=== PATIENT | female | born 1955 | race Caucasian/White ===

== ENCOUNTER 2016-05-22 13:11 | Emergency (ER) | payer OTHER ==
[~2016-05-22] VITALS: Ht 175.2 cm; Wt 128.8 kg
[~2016-05-22 13:11] MED LIST: ANAPROX DS550 MG PO; ASTHMANEX; AVPAK AZITHROM250 M1 PO; BACTRIM DS 8001 TA1 PO; CIPRODEX 0.3%-7.5 ML OT; CIPROFLOXACIN500 MG PO; CLARITIN10 MG PO; DARVOCET N 1001 TAB PO; FLEXERIL5 MG PO; GLUCOPHAGE500 MG PO; HCTZ/TRIAMTEREN1 TA3 PO; HYDROCODONE BIT1 T11 PO; HYDROCODONE BIT1 T20 PO; IBU-8800 MG PO; K-DUR20 MEQ PO; KENALOG 0.025%15 GM T; MASON NATURAL2000 IU PO; MAXIDE; MEDROL DOSEPAK4 MG PO; MOBIC15 MG PO; MOTRIN 800 MG E4 TAB PO; MOTRIN800 MG PO; MUCINEX DM 60 M1 TER PO; PHENERGAN W/ DE30 ML PO; PRAVACHOL PO; PRAVACHOL40 MG PO; PREDNICOT10 MG PO; PREDNICOT20 MG PO; PRILOSEC20 M1 PO; PROAIR HFA0.09 MG/AC INH; PYRIDIUM200 MG PO; ROBITUSSIN DM 105 ML PO; TESSALON PERLE200 MG PO; ULTRAM50 MG PO; VICODIN 500 MG-1 TAB PO; VITAMIN B121000 MC2 SL; VOLTAREN50 M1 PO; ZITHROMAX Z PA250 MG PO; ZITHROMAX250 MG PO; ZOFRAN ODT4 MG SL; ZOLPIDEM TART10 MG PO
[2016-05-22 15:09] LABS: ALBUMIN 3.6 gm/dl (3.1-4.5); ALKALINE PHOSPHATASE 73 U/L (45-117); BILIRUBIN, TOTAL 0.6 mg/dl (0.2-1.0); BUN 8 mg/dl (7-24); CARBON DIOXIDE 32 mmol/L (21-32); CHLORIDE 97 mmol/L (98-107); EST GLOM FILT AFRICAN AMERICAN > 60 ml/min; GLUCOSE 88 mg/dL (65-99); POTASSIUM 4.2 mmol/L (3.5-5.1); SGOT/AST 22 IU/L (3-35); SGPT/ALT 24 U/L (12-78); SODIUM 135 mmol/L (136-145)
[2016-05-22] MEDS ORDERED: ZITHROMAX500 MG PO (15:42)
[2016-05-22] MEDS ORDERED: MEDROL DOSEPAK4 MG PO (15:43)
[2016-05-22] MEDS ORDERED: PROAIR HFA8.5 GM INH (15:43)
[2016-05-22 16:24] LABS: BASO # 0.1 10*3/uL (0.0-0.1); BASO % 0.4 % (0.0-1.0); EOS # 0.1 10*3/uL (0.0-0.4); EOS % 0.7 % (1.0-4.0); HEMATOCRIT 42.4 % (37.0-47.0); HEMOGLOBIN 13.9 g/dl (12.0-16.0); IG # 0.1 10*3/uL (0.0-0.1); LYMPH # 4.2 10*3/uL (1.3-4.4); LYMPH % 32.4 % (27.0-41.0); MEAN CORPUSCULAR HGB 30.2 pg (27.0-31.0); MEAN CORPUSCULAR HGB CONC 32.8 g/dl (33.0-37.0); MEAN PLATELET VOLUME 10.1 fl (9.6-12.3); MONO % 7.8 % (3.0-9.0); NEUT # 7.5 10*3/uL (2.3-7.9); PLATELET COUNT AUTOMATED 198 10*3/uL (130-400); RED BLOOD COUNT 4.61 10*6/uL (4.10-5.10); RED CELL DISTRI WIDTH 12.3 % (0-14.5); WHITE BLOOD COUNT 12.9 10*3/uL (4.8-10.8)
[2016-05-22 16:34] VITALS: BP 123/53
== END 2016-05-22 16:28 | disposition home or self-care (01) ==
LOC: ED 13:11
PROVIDERS: Nurse Practitioner Family
DX: J40 Bronchitis, not specified as acute or chronic (principal); F17.200 Nicotine dependence, unspecified, uncomplicated; Z88.0 Allergy status to penicillin; Z88.1 Allergy status to other antibiotic agents; Z88.6 Allergy status to analgesic agent; Z79.899 Other long term (current) drug therapy

== ENCOUNTER 2016-08-23 16:31 | Emergency (ER) | payer OTHER ==
[~2016-08-23] VITALS: Ht 172.7 cm; Wt 119.3 kg
--- NOTE | ~2016-08-23 | EKG ---
[place], [place] ELECTROCARDIOGRAM REPORT NAME: NALDO QUILES UNIT #: [id number] ROOM: DOCTOR: TONI HILL,RICHY BIRTHDATE: [birth year] DOS: 08/23/2016 TIME: 17:29 p.m. FINDINGS: 1. Normal sinus rhythm with rate 69. 2. Leftward axis. 3. Poor precordial R wave progression. 4. Anterior T wave inversions. 5. Nonspecific intraventricular conduction defect. 6. Abnormal electrocardiogram. RICHY MUÑOZ MD CM:EKGRPT:ELECTROCARDIOGRAM REPORT [id number] RICHY MUÑOZ MD
[~2016-08-23 16:31] MED LIST changes: +PROAIR HFA8.5 GM INH; +ZITHROMAX500 MG PO
[2016-08-23 16:39] VITALS: BP 153/74
[2016-08-23 17:33] LABS: HEMATOCRIT 40.8 % (37.0-47.0); HEMOGLOBIN 13.7 g/dl (12.0-16.0); MEAN CELL VOLUME 91.7 fl (81.0-99.0); MEAN CORPUSCULAR HGB 30.8 pg (27.0-31.0); MEAN CORPUSCULAR HGB CONC 33.6 g/dl (33.0-37.0); MEAN PLATELET VOLUME 9.5 fl (9.6-12.3); PLATELET COUNT AUTOMATED 198 10*3/uL (130-400); RED BLOOD COUNT 4.45 10*6/uL (4.10-5.10); RED CELL DISTRI WIDTH 12.3 % (0-14.5); WHITE BLOOD COUNT 10.7 10*3/uL (4.8-10.8)
[2016-08-23 17:50] LABS: ALBUMIN 3.6 gm/dl (3.1-4.5); ALKALINE PHOSPHATASE 72 U/L (45-117); BILIRUBIN, TOTAL 0.4 mg/dl (0.2-1.0); BUN 12 mg/dl (7-24); CARBON DIOXIDE 27 mmol/L (21-32); CHLORIDE 100 mmol/L (98-107); CPK 75 U/L (26-192); EST GLOM FILT AFRICAN AMERICAN > 60 ml/min; GLUCOSE 114 mg/dL (65-99); LDH 170 U/L (84-246); MAGNESIUM 1.8 mg/dL (1.5-2.1); POTASSIUM 3.9 mmol/L (3.5-5.1); SGOT/AST 14 IU/L (3-35); SGPT/ALT 21 U/L (12-78); SODIUM 137 mmol/L (136-145); TOTAL PROTEIN 7.2 gm/dL (6.4-8.2)
[2016-08-23 17:52] LABS: TROPONIN I < 0.015 ng/ml (<0.045)
[2016-08-23 17:55] LABS: BASOPHIL # 0.1 10*3/uL (0-0.1); BASOPHILS 1 % (0-1); LYMPHOCYTE # 5.7 10*3/uL (1.3-4.4); MONOCYTE # 0.3 10*3/uL (0.1-1.0); NEUTROPHIL # 4.6 10*3/uL (2.3-7.9); NEUTROPHILS 43 % (47-73); PLATELET SUFFICIENCY NORMAL (NORMAL); TOTAL CELLS COUNTED 100 #CELLS
[2016-08-23] MEDS ORDERED: TYLENOL WITH CO1 TA1 PO (19:07)
== END 2016-08-23 19:11 | disposition home or self-care (01) ==
LOC: ED 16:31
PROVIDERS: Physician Assistant
DX: M79.671 Pain in right foot (principal); R60.9 Edema, unspecified; F17.200 Nicotine dependence, unspecified, uncomplicated; Z90.49 Acquired absence of other specified parts of digestive tract; Z88.0 Allergy status to penicillin; Z88.1 Allergy status to other antibiotic agents; Z88.6 Allergy status to analgesic agent

== ENCOUNTER 2016-09-25 23:34 | Emergency (ER) | payer OTHER ==
[~2016-09-25] VITALS: Ht 172.7 cm; Wt 122.5 kg
[~2016-09-25 23:34] MED LIST changes: +TYLENOL WITH CO1 TA1 PO
[2016-09-25 23:41] VITALS: BP 131/89
[2016-09-26 00:25] LABS: HEMATOCRIT 41.1 % (37.0-47.0); HEMOGLOBIN 14.1 g/dl (12.0-16.0); MEAN CELL VOLUME 90.7 fl (81.0-99.0); MEAN CORPUSCULAR HGB 31.1 pg (27.0-31.0); MEAN CORPUSCULAR HGB CONC 34.3 g/dl (33.0-37.0); PLATELET COUNT AUTOMATED 224 10*3/uL (130-400); RED BLOOD COUNT 4.53 10*6/uL (4.10-5.10); RED CELL DISTRI WIDTH 12.2 % (0-14.5); WHITE BLOOD COUNT 12.8 10*3/uL (4.8-10.8)
[2016-09-26 00:41] LABS: INTERNATIONAL NORM RATIO 0.9 (2.0-3.5)
[2016-09-26 00:43] LABS: ATYPICAL LYMPHS 4 % (0-0); EOSINOPHIL # 0.1 10*3/uL (0-0.4); EOSINOPHILS 1 % (1-4); NEUTROPHIL # 4.6 10*3/uL (2.3-7.9); NEUTROPHILS 36 % (47-73); TOTAL CELLS COUNTED 100 #CELLS
[2016-09-26 00:44] LABS: PLATELET SUFFICIENCY NORMAL (NORMAL)
[2016-09-26 00:48] LABS: ALBUMIN 3.7 gm/dl (3.1-4.5); ALKALINE PHOSPHATASE 75 U/L (45-117); BILIRUBIN, TOTAL 0.3 mg/dl (0.2-1.0); BUN 11 mg/dl (7-24); CARBON DIOXIDE 28 mmol/L (21-32); CHLORIDE 100 mmol/L (98-107); CPK 107 U/L (26-192); EST GLOM FILT AFRICAN AMERICAN > 60 ml/min; GLUCOSE 103 mg/dL (65-99); LDH 165 U/L (84-246); MAGNESIUM 1.9 mg/dL (1.5-2.1); POTASSIUM 3.3 mmol/L (3.5-5.1); SGOT/AST 19 IU/L (3-35); SGPT/ALT 27 U/L (12-78); SODIUM 136 mmol/L (136-145); TOTAL PROTEIN 7.2 gm/dL (6.4-8.2)
[2016-09-26 00:49] LABS: CKMB 0.9 ng/ml (0.5-3.6)
[2016-09-26 00:52] LABS: TROPONIN I < 0.015 ng/ml (<0.045)
[2016-09-26] MEDS ORDERED: MECLIZINE HCL25 M2 PO (02:23)
== END 2016-09-26 02:22 | disposition home or self-care (01) ==
LOC: ED 23:34
PROVIDERS: Physician Assistant
DX: R42 Dizziness and giddiness (principal); F17.200 Nicotine dependence, unspecified, uncomplicated; Z90.49 Acquired absence of other specified parts of digestive tract; Z88.0 Allergy status to penicillin; Z88.1 Allergy status to other antibiotic agents; Z88.6 Allergy status to analgesic agent; Z79.899 Other long term (current) drug therapy

== ENCOUNTER → 2017-04-27 | Outpatient (CLI) | payer OTHER ==
[~2017-04-27] MED LIST changes: +MECLIZINE HCL25 M2 PO
[2017-04-27 10:08] LABS: ALBUMIN 3.5 gm/dl (3.1-4.5); BILIRUBIN, DIRECT 0.1 mg/dL (0.0-0.2); CREATININE 1.14 mg/dL (0.55-1.02); PHOSPHOROUS 2.9 mg/dL (2.5-4.9); POTASSIUM 4.1 mmol/L (3.5-5.1)
== END | disposition home or self-care (01) ==
LOC: LAB 09:11
PROVIDERS: Internal Medicine
DX: E11.9 Type 2 diabetes mellitus without complications (principal); E78.2 Mixed hyperlipidemia

== ENCOUNTER → 2018-02-20 | Day surgery (SDC) | payer OTHER ==
[~2018-02-20] VITALS: Ht 172.7 cm; Wt 126.1 kg
[~2018-02-20] MED LIST changes: +ALDACTONE25 MG PO; +FLUTICASONE SPR 50M NAS; +TRAMADOL HCL50 MG PO; -VITAMIN B121000 MC2 SL; +VITAMIN B1250 MCG PO
--- NOTE | ~2018-02-20 | O ---
[place], [place] OPERATIVE NOTE NAME: NALDO QUILES [facility] #: [id number] UNIT #: [id number] ROOM: DOCTOR: KENNA VIEIRA MD BIRTHDATE: [birth year] DOS: 02/20/2018 PREOPERATIVE DIAGNOSIS: Cataract, left eye. POSTOPERATIVE DIAGNOSIS: Cataract, left eye. OPERATION: Extracapsular cataract extraction by phacoemulsification with posterior chamber intraocular lens implantation, left eye. ANESTHESIA: Monitored standby. OPERATIVE FINDINGS AND PROCEDURE: 2% Xylocaine topical anesthetic gel was applied to the eye in the preop area. The patient was taken to the operating room and prepped and draped in the standard fashion for sterile intraocular surgery. A time out procedure was performed verifying correct patient, correct site and corrects lens with Ninfa Vieira M.D. The operating microscope was swung into position and the lid speculum was inserted. Using a Jessica paracentesis blade, a paracentesis was made through clear cornea. Viscoelastic was used to fill the anterior chamber. Using a metal keratome a 2.4 mm self-sealing clear corneal cataract incision was made temporally at the limbus. Using a pre-bent 25 gauge cystotome needle, a standard continuous curvilinear capsulorrhexis was performed. The anterior capsule was removed with forceps. The lens nucleus was hydrodissected and phacoemulsified in the posterior chamber. Cortical material was removed with the irrigation aspiration hand piece and the posterior capsule was then polished with a curet under irrigation. The posterior chamber and capsular bag were filled with viscoelastic. A posterior chamber intraocular lens manufactured by: [employer], Model #[id number] and 21.5 diopters in strength were then inserted into the posterior chamber and within the capsular bag using the lens cartridge and injector system. Viscoelastic was removed using the irrigation aspiration handpiece. The anterior chamber was filled with balanced salt solution through the paracentesis. Both the paracentesis site and cataract incisions were hydrated with BSS and verified to be water-tight and self-sealing. The incision checked to be water-tight using a Weck-Tomasa sponge. The integrity of the cataract wound and ocular tension were checked. Lid speculum and drapes were removed. The patient was transferred from the operating room to the recovery room in satisfactory condition. [place], [place] OPERATIVE NOTE NAME: NALDO QUILES UNIT #: [id number] ROOM: DOCTOR: KENNA VIEIRA MD BIRTHDATE: [birth year] KENNA VIEIRA MD CM:OPRECORD:OPERATIVE NOTE [id number] KENNA VIEIRA MD 02/20/18 1042 interface
[2018-02-20 08:49] VITALS: BP 125/42
[2018-02-20 10:05] VITALS: BP 111/50
[2018-02-20 10:20] VITALS: BP 110/54
[2018-02-20 10:30] VITALS: BP 128/50
== END | disposition home or self-care (01) ==
LOC: SDC 02-15 12:30
DX: E11.36 Type 2 diabetes mellitus with diabetic cataract (principal); H25.812 Combined forms of age-related cataract, left eye; I10 Essential (primary) hypertension; E78.00 Pure hypercholesterolemia, unspecified; K21.9 Gastro-esophageal reflux disease without esophagitis; J44.9 Chronic obstructive pulmonary disease, unspecified; G47.30 Sleep apnea, unspecified; E66.01 Morbid (severe) obesity due to excess calories; M19.90 Unspecified osteoarthritis, unspecified site; G89.29 Other chronic pain; F41.8 Other specified anxiety disorders; F17.210 Nicotine dependence, cigarettes, uncomplicated; Z98.891 History of uterine scar from previous surgery; Z98.890 Other specified postprocedural states; Z90.49 Acquired absence of other specified parts of digestive tract; Z88.1 Allergy status to other antibiotic agents; Z88.5 Allergy status to narcotic agent; Z88.0 Allergy status to penicillin; Z91.013 Allergy to seafood; Z68.41 Body mass index [BMI] 40.0-44.9, adult; Z91.041 Radiographic dye allergy status; Z87.11 Personal history of peptic ulcer disease; Z79.899 Other long term (current) drug therapy

== ENCOUNTER → 2018-12-02 | Outpatient (CLI) | payer OTHER ==
[~2018-12-02] MED LIST changes: +FLONASE ALLERG9.9 ML NAS; +Ipratropium Brom3 ML INH; +PREDNISONE10 MG PO
== END | disposition home or self-care (01) ==
LOC: RAD 13:52
DX: M51.37 Other intervertebral disc degeneration, lumbosacral region (principal); F51.01 Primary insomnia

== ENCOUNTER 2019-02-16 13:09 | Inpatient (IN) | payer OTHER ==
[~2019-02-16] VITALS: Ht 172.7 cm; Wt 119.1 kg
[2019-02-16 13:10] VITALS: BP 148/61
[2019-02-16 13:24] LABS: BILIRUBIN NEGATIVE (NEGATIVE); BLOOD TRACE-INTACT (NEGATIVE); CLARITY SL CLOUDY (CLEAR); COLOR YELLOW (YELLOW); GLUCOSE NEGATIVE (NEGATIVE); KETONE NEGATIVE (NEGATIVE); LEUKO ESTERASE 2+ (NEGATIVE); NITRITE NEGATIVE (NEGATIVE); PH 6.5 (5.0-9.0)
[2019-02-16 13:40] LABS: WBC TNTC wbc/hpf (0-5)
[2019-02-16 14:02] LABS: HEMATOCRIT 42.4 % (37.0-47.0); HEMOGLOBIN 13.4 g/dl (12.0-16.0); MEAN CELL VOLUME 96.4 fl (81.0-99.0); MEAN CORPUSCULAR HGB 30.5 pg (27.0-31.0); MEAN CORPUSCULAR HGB CONC 31.6 g/dl (33.0-37.0); MEAN PLATELET VOLUME 10.5 fl (9.6-12.3); PLATELET COUNT AUTOMATED 146 10*3/uL (130-400); RED CELL DISTRI WIDTH 12.1 % (0-14.5); WHITE BLOOD COUNT 10.4 10*3/uL (4.8-10.8)
[2019-02-16 14:13] LABS: ACT PARTIAL THROMBO TIME 25.6 SECONDS (20.0-32.1); INTERNATIONAL NORM RATIO 0.9 (2.0-3.5)
[2019-02-16 14:22] LABS: ATYPICAL LYMPHS 7 % (0-0); TOTAL CELLS COUNTED 100 #CELLS
[2019-02-16 14:23] LABS: PLATELET SUFFICIENCY NORMAL (NORMAL)
[2019-02-16 14:33] LABS: ALBUMIN 3.2 gm/dl (3.1-4.5); ALKALINE PHOSPHATASE 65 U/L (45-117); BUN 10 mg/dl (7-24); CHLORIDE 106 mmol/L (98-107); CREATININE 1.06 mg/dL (0.55-1.02); POTASSIUM 3.9 mmol/L (3.5-5.1); SGOT/AST 16 IU/L (3-35); SGPT/ALT 18 U/L (12-78); SODIUM 140 mmol/L (136-145); TOTAL PROTEIN 6.4 gm/dL (6.4-8.2)
[2019-02-16 14:34] LABS: TROPONIN I < 0.015 ng/ml (<0.045)
[2019-02-16] MEDS ORDERED: LASIX40 MG PO (17:06)
[2019-02-16] MEDS ORDERED: TRAZODONE50 MG PO (17:07)
[2019-02-16 17:40] VITALS: BP 152/68
--- NOTE | 2019-02-16 17:40 | NUR ---
A 63, admitted to , under the services of KEVEN Porter DO with a diagnosis of UTI,ABDOMINAL PAIN. Chief complaint is LOW BACK ABDOMINAL PAIN. Patient arrived via stretcher from ER. Monitor applied. Initial assessment completed. Vital signs taken and recorded. KEVEN PORTER DO notified of admission to the unit. Orders received. See assessment for past medical history, medications and allergies. Patient and/or family oriented to unit. [facility] visitation policy reviewed. Clothing/patient valuable form completed. МАРИНА CHACON
--- NOTE | 2019-02-16 17:51 | NUR ---
PATIENT CO NOT GETTING TO EAT. DIETARY ORDER PLACED FOR PATIENT. EXPLAINED THAT WE HAVE TO WAIT FOR CT RESULTS TO COME BACK BEFORE WE CAN LET HER EAT. PATIENT CO THAT WE ARE PUTTING HER IN THE "HAUNTED PART" OF THE HOSPITAL. PATIENT TAKEN TO 4TH FLOOR BY THIS NURSE. NO CHANGE IN STATUS.
--- NOTE | 2019-02-16 18:27 | NUR ---
DR. LABOY NOTIFIED OF PT'S REQUEST FOR SOMETHING STRONGER FOR PAIN RELIEF OTHER THAN TYLENOL. TO ORDER SOMETHING.
[2019-02-16 20:00] VITALS: BP 142/52
[2019-02-16] MEDS ORDERED: CYMBALTA20 M1 PO (20:03)
[2019-02-16] MEDS ORDERED: PRAVACHOL40 MG PO (20:04)
--- NOTE | 2019-02-16 22:18 | NUR ---
PT MEDICATED W/RESTORIL TO HELP PROMOTE SLEEP. LIGHTS TURNED OFF. PT DOES NOT WISH TV OFF OR DOOR SHUT AT THIS TIME.
[2019-02-17] VITALS: BP 126/54
--- NOTE | 2019-02-17 03:10 | NUR ---
PATIENT RESTING IN BED WITH NO NEEDS MADE. BED IN LOWEST POSITION, CALL LIGHT IN REACH
--- NOTE | 2019-02-17 05:30 | NUR ---
PATIENT'S BED ELEVATED UPON ENTERING ROOM. PATIENT STATES "LEAVE MY BED UP". PATIENT EDUCATED ON IMPORTANCE OF BED BEING IN LOW POSITION FOR SAFETY. BED WAS LOWERED TO LOWEST SETTING. PATIENT STATES "I WILL JUST RAISE IT WHEN YOU LEAVE THE ROOM". BED IN LOW LOCKED POSITION BEFORE THIS RN LEFT THE ROOM. CALL LIGHT IN REACH
[2019-02-17 06:12] LABS: HEMATOCRIT 40.3 % (37.0-47.0); HEMOGLOBIN 12.8 g/dl (12.0-16.0); MEAN CELL VOLUME 97.3 fl (81.0-99.0); MEAN CORPUSCULAR HGB 30.9 pg (27.0-31.0); MEAN CORPUSCULAR HGB CONC 31.8 g/dl (33.0-37.0); MEAN PLATELET VOLUME 10.8 fl (9.6-12.3); PLATELET COUNT AUTOMATED 126 10*3/uL (130-400); RED BLOOD COUNT 4.14 10*6/uL (4.10-5.10); WHITE BLOOD COUNT 10.2 10*3/uL (4.8-10.8)
[2019-02-17 06:44] LABS: ALBUMIN 2.9 gm/dl (3.1-4.5); BUN 13 mg/dl (7-24); CHLORIDE 107 mmol/L (98-107); CREATININE 1.03 mg/dL (0.55-1.02); PHOSPHOROUS 3.2 mg/dL (2.5-4.9); POTASSIUM 3.8 mmol/L (3.5-5.1); SGOT/AST 14 IU/L (3-35); SGPT/ALT 18 U/L (12-78); SODIUM 140 mmol/L (136-145); TOTAL PROTEIN 5.8 gm/dL (6.4-8.2)
[2019-02-17 06:51] LABS: ALKALINE PHOSPHATASE 59 U/L (45-117); FREE T4 1.04 ng/dl (0.76-1.46)
[2019-02-17 07:04] LABS: PLATELET SUFFICIENCY LOW (NORMAL); TOTAL CELLS COUNTED 100 #CELLS
[2019-02-17 08:36] VITALS: BP 120/60
--- NOTE | 2019-02-17 09:00 | NUR ---
Heel Seat Fitter in to talk to patient. Patient states lives at home with boyfriend and son. There are few steps in the home. Physician: anabell dubose [facility] Home health services: none Patient's level of ADLs: INDEPENDENT Patient has working utilities: all working DME: wheelchair and walker Follow-up physician's appointment after d/c: will be made by hospitalist nurse director upon discharge Does patient want to access PORTAL?: no Discharge plan discussed with patient, she states she lives at home with boyfriend and son, she states she is independent in adls and ambualtion, she states she has a wheelchair and walker that she uses occasionally, patient she states she will return home when medically stable. discussed with her VNA and she declines any home needs at this time, case management will follow. AYAZ MALAVE
--- NOTE | 2019-02-17 10:00 | NUR ---
PT STATES TYLENOL INEFFECTIVE
--- NOTE | 2019-02-17 11:19 | NUR ---
pt complaining of abdominal pain, states tylenol was innefective, notified dr. craig. order for morphine, asked patient what reaction to codeine, pt states her codeine reaction was "a long time go" asked if it was breathing, throat swelling - pt states " i do not think so" "i have taken vicoden and tylenol #3 before and did okay"
--- NOTE | 2019-02-17 11:53 | NUR ---
morphine given for 01/21, abdominal pain. pt aware of allergy s/s to report to staff. will monitor frequently
[2019-02-17 12:00] VITALS: BP 134/53
--- NOTE | 2019-02-17 13:00 | NUR ---
PT TOLERATED MORPHINE, NO REACTION S/S NOTED
--- NOTE | 2019-02-17 15:03 | NUR ---
DR. BONILLA/DR. COELLO IN TO SEE PATIENT. D/C STREET WORKER.
[2019-02-17 16:00] VITALS: BP 139/52
--- NOTE | 2019-02-17 19:32 | NUR ---
PATIENT RESTING IN BED WITH VISITOR AT BEDSIDE. DENIES NEEDS AT THIS TIME. BED IN LOWEST POSITION, CALL LIGHT IN REACH
--- NOTE | 2019-02-17 19:36 | NUR ---
DR OLEARY AWARE OF PATIENT REQUESTING HOME TRAZADONE. ORDERS TAKEN
[2019-02-17 20:00] VITALS: BP 129/51
--- NOTE | 2019-02-17 21:13 | NUR ---
PRN MORPHIME GIVEN PER ORDER FOR PAIN. WILL MONITOR
[2019-02-18] VITALS: BP 119/53
--- NOTE | 2019-02-18 03:10 | NUR ---
PATIENT RESTING IN BED WITH NO S/S OF DISTRESS. BED IN LOWEST POSITION, CALL LIGHT IN REACH
[2019-02-18 08:00] VITALS: BP 112/62
[2019-02-18] MEDS ORDERED: NORCO 5-325 TA1 EACH PO (08:23)
[2019-02-18] MEDS ORDERED: FLOMAX0.4 MG PO (08:23)
[2019-02-18] MEDS ORDERED: NATURE'S BLEND F1 MG PO (08:26)
--- NOTE | 2019-02-18 09:00 | NUR ---
case management visits with patient, she states she will be discharged to home today and denies any home needs
--- NOTE | 2019-02-18 09:30 | NUR ---
patient c/o lower back pain, rated 8/10 scale. Medicated with morphine as ordered at patient's request at 0900. See 929 Patient sleeping. No distress noted, respirations regular, Ronald JESUS
--- NOTE | 2019-02-18 11:41 | NUR ---
PATIENT DISCHARGED TO HOME. ALL PERSONAL BELONGINGS SENT WITH PATIENT. IV DISCONTINUED. DISCHARGE INSTRUCTIONS GIVEN AND REVIEWED WITH PATIENT. PATIENT GIVEN PRESCRIPTION FOR NORCO AND INFORMED OF TWO PRESCRIPTIONS SENT TO HER PHARMACY. ALSO INFORMED OF FOLLOW UP APPOINTMENT SCHEDULED FOR 02/26 AT 3PM WITH .
--- NOTE | 2019-02-18 12:39 | NUR ---
Another Multi-Disciplinary Team meeting was held on 02/18/19, for the purpose of discharge planning. The patient was referred to the following services for follow-up:patient will return home, does not require any home services at this time, discharge today AYAZ MALAVE
== END 2019-02-18 11:41 | disposition home or self-care (01) | DRG 465 ==
LOC: ED 13:09 → EDHOLD 16:16 → 4E 16:16
PROVIDERS: Emergency Medicine; Student in an Organized Health Care Education/Training Program; ADMIT Emergency Medicine
DX: N20.0 Calculus of kidney (principal); N30.00 Acute cystitis without hematuria; E66.9 Obesity, unspecified; E78.5 Hyperlipidemia, unspecified; G47.00 Insomnia, unspecified; G25.81 Restless legs syndrome; K21.9 Gastro-esophageal reflux disease without esophagitis; M51.27 Other intervertebral disc displacement, lumbosacral region; F17.200 Nicotine dependence, unspecified, uncomplicated; R60.0 Localized edema; Z88.0 Allergy status to penicillin; Z88.1 Allergy status to other antibiotic agents; Z91.041 Radiographic dye allergy status; Z88.5 Allergy status to narcotic agent; Z98.891 History of uterine scar from previous surgery; Z90.49 Acquired absence of other specified parts of digestive tract; Z98.49 Cataract extraction status, unspecified eye; Z82.49 Family history of ischemic heart disease and other diseases of the circulatory system; Z79.899 Other long term (current) drug therapy; Z68.41 Body mass index [BMI] 40.0-44.9, adult

== ENCOUNTER → 2021-10-24 | Day surgery (SDC) | payer OTHER ==
[2021-10-20 13:04] VITALS: BP 115/48
[~2021-10-24] VITALS: Ht 172.7 cm; Wt 133.4 kg
[~2021-10-24] MED LIST changes: +AMBIEN10 M1 PO; +CLOTRIMAZOLE TR10 MG MM; +CYMBALTA20 M1 PO; +DULCOLAX5 M1 PO; +FLOMAX0.4 MG PO; +FLOVENT HFA12 GM INH; +FLUONAZOLE100 M1 PO; +K-TAB20 MEQ PO; +LASIX40 MG PO; +NATURE'S BLEND F1 MG PO; +NORCO 5-325 TA1 EACH PO; +TRAZODONE50 MG PO; +ZANAFLEX4 M1 PO
[2021-10-24 06:40] VITALS: BP 109/53
[2021-10-24 08:23] VITALS: BP 127/67
[2021-10-24 08:38] VITALS: BP 139/59
[2021-10-24 08:53] VITALS: BP 118/52
[2021-10-24 09:08] VITALS: BP 116/45
[2021-10-24 09:25] VITALS: BP 123/48
== END | disposition home or self-care (01) ==
LOC: SDC 10-20 12:30
PROVIDERS: ATTEND Specialist
DX: R49.0 Dysphonia (principal); B37.89 Other sites of candidiasis; J38.7 Other diseases of larynx; F17.210 Nicotine dependence, cigarettes, uncomplicated; K21.9 Gastro-esophageal reflux disease without esophagitis; E11.9 Type 2 diabetes mellitus without complications; J44.9 Chronic obstructive pulmonary disease, unspecified; I10 Essential (primary) hypertension; E78.00 Pure hypercholesterolemia, unspecified; F41.9 Anxiety disorder, unspecified; F32.9 Major depressive disorder, single episode, unspecified; Z79.899 Other long term (current) drug therapy